=== PATIENT | male | born 1995 | race Two or more races ===

== ENCOUNTER 2017-12-29 20:04 | Inpatient (IN) | payer OTHER ==
--- NOTE | 2017-12-29 20:51 | ED ---
Psychiatric Complaint - HPI Summary HPI Summary: This patient is a 22 year old male presenting to [facility] by police with a chief complaint of SI. Patient states that school has been difficult and that he has been depressed. Symptoms aggravated by nothing. Symptoms alleviated by nothing. Patient additionally reports SI. Patient states that he has not been doing well at school and couldnt figure out his homework. He started having dark thoughts in the library. Earlier in the day, he had two pints, was pretty depressed. He had a conversation with one female friend and expressed thoughts of SI. That friend became worried and called the police. By then, the patient was talking to another friend, talked about his day, and was feeling better when the police picked him up. - History Of Current Complaint Chief Complaint: EDMentalHealth Time Seen by Provider: 12/29/17 20:27 Hx Obtained From: Patient Onset/Duration: Lasting Hours, Still Present Timing: Constant Severity Currently: Mild Character: Depressed Aggravating Factor(s): Nothing Alleviating Factor(s): Nothing Has Suicidal: Reports: Thoughts - Allergies/Home Medications Allergies/Adverse Reactions: Allergies Allergy/AdvReac Type Severity Reaction Status Date / Time Penicillins Allergy Swelling Verified 12/31/17 01:08 Of Face,Lips,& Throat Home Medications: Home Medications NK [No Home Medications Reported] 12/29/17 [History Confirmed 12/29/17] PMH/Surg Hx/FS Hx/Imm Hx Previously Healthy: Yes Opthamlomology History: Denies: Hx Legally Blind EENT History: Denies: Hx Deafness Psychiatric History: Reports: Hx Depression Infectious Disease History: No Infectious Disease History: Denies: Traveled Outside the [place] in Last 30 Days - Family History Known Family History: Positive: Hypertension - Social History Occupation: Student Lives: Dormitory/Roommates Alcohol Use: Occasionally Hx Substance Use: No Substance Use Type: Reports: None Hx Tobacco Use: No Smoking Status (MU): Never Smoked Tobacco Review of Systems Negative: Fever Positive: Depressed, Other - SI All Other Systems Reviewed And Are Negative: Yes Physical Exam - Summary Physical Exam Summary: Appearance: Well-appearing, Well-nourished, lying in bed comfortable Skin: Warm, dry, no obvious rash Eyes: sclera anicteric, no conjunctival pallor ENT: mucous membranes moist Neck: deferred Respiratory: No signs of respiratory distress Cardiovascular: Appears well perfused, pulses are nml Abdomen: deferred Musculoskeletal: Moving all 4 extremities without obvious discomfort Neurological: Awake and alert, mentation is normal, speech is fluent and appropriate Triage Information Reviewed: Yes Vital Signs On Initial Exam: Initial Vitals Temp Pulse Resp BP Pulse Ox 97.8 F 58 18 131/76 100 12/29/17 20:07 12/29/17 20:07 12/29/17 20:07 12/29/17 20:07 12/29/17 20:07 Vital Signs Reviewed: Yes Diagnostics - Vital Signs Vital Signs Temp Pulse Resp BP Pulse Ox 12/29/17 20:07 97.8 F 58 18 131/76 100 - Laboratory Result Diagrams: 12/30/17 03:12 12/30/17 03:12 Lab Statement: Any lab studies that have been ordered have been reviewed, and results considered in the medical decision making process. Course/Dx - Course Course Of Treatment: This is a 22 year old college student with a h/o depression treated with therapy in the past. He was lost to followup and has been having worsening sadness associated with some recent suicidal thoughts but no plan. From a medical standpoint he is healthy, does not take any chronic medications, does not have any significant chronic medical conditions, and does not require any routine laboratory evaluation. A urine toxicology will be taken. Assessment/Plan: This patient is a 22 year old male presenting to [facility] by police with a chief complaint of SI. Patient states that school has been difficult and that he has been depressed. Patient will be admitted to the hospital for MHE. The patient is agreeable with this plan. - Differential Dx/Clinical Impression Provider Diagnosis: Suicidal ideation - Physician Notifications Patient Is Medically Stable For: Psych Evaluation Discharge - Sign-Out/Discharge Documenting (check all that apply): Patient Departure - Discharge Plan Condition: Improved Disposition: ADMITTED TO [facility] - Billing Disposition and Condition Condition: IMPROVED Disposition: Admitted to [facility] - Attestation Statements Document Initiated by Rochelle: Yes Documenting Scribe: Shannan Blum Provider For Whom Rochelle is Documenting (Include Credential): Shai Mobley MD Scribe Attestation: Shannan Joy scribed for Shai Mobley MD on 01/01/18 at 1351. Scribe Documentation Reviewed: Yes Provider Attestation: The documentation as recorded by the Shannan barraza accurately reflects the service I personally performed and the decisions made by me, Shai Mobley MD
[2017-12-30 03:23] LABS: ABS Basophils 0 10^3/ul (0-0.2); ABS Eosinophils 0.1 10^3/ul (0-0.6); ABS Lymphocytes 2.3 10^3/ul (1.0-4.8); ABS Monocytes 0.5 10^3/ul (0-0.8); ABS Neutrophils 4.4 10^3/ul (1.5-7.7); ABS Nucleated RBC 0 10^3/ul; Eosinophil % 0.7 % (0-6); Hematocrit 46 % (42-52); Hemoglobin 15.6 g/dl (14.0-18.0); Lymphocyte % 31.3 % (25-47); Mean Corpuscular HGB Conc 34 g/dl (31-36); Mean Corpuscular Hemoglobin 32 pg (27-31); Mean Corpuscular Volume 94 fL (80-94); Nucleated Red Blood Cells % 0.1; Platelet Count 177 10^3/ul (150-450); Red Cell Distribution Width 13 % (10.5-15); White Blood Count 7.2 10^3/ul (3.5-10.8)
[2017-12-30 03:39] LABS: EGFR Non-African American 93.2 (>60)
[2017-12-30] MEDS ORDERED: Acetaminophen TAB* 325 MG PO PRN (05:11)
[2017-12-30] MEDS ORDERED: Al Hydrox/Mg Hydrox/Simet LIQ* 30 ML UDC PO PRN (05:11)
[2017-12-30] MEDS: Vitamin THERAPEUTIC TAB PO SCH (14:53)
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
[2017-12-31] MEDS: Vitamin THERAPEUTIC TAB PO SCH (10:36)
[2018-01-01] MEDS: Vitamin THERAPEUTIC TAB PO SCH (08:42)
[2018-01-01 11:14] VITALS: BP 126/72
--- NOTE | 2018-01-01 13:43 | PN ---
MHU: Group Therapy Note - Service Type Service Type: [id number] Group Psychotherapy - Cognitive Behavioral Group Therapy ( CBT):Patient was attentive and participatory in CBT programming this morning, and remained in good behavioral control. Patient expressed positive insights regarding relevant treatment interventions and goals.
--- NOTE | 2018-01-03 05:37 | DS ---
CC: [facility] * DISCHARGE SUMMARY: DATE OF ADMISSION: 12/30/17 DATE OF DISCHARGE: 01/01/18 SUPERVISING PSYCHIATRIST: Dr. Wiley Tena.* (DICTATED BY JASVIR MCHUGH NP) DISCHARGE DIAGNOSIS: Adjustment disorder with disturbance of mood. CONDITION AT THE TIME OF DISCHARGE: Improved. The patient denied suicidal ideation. He denies urges for self-harm. He reports desire to be discharged as soon as possible and is future and goal oriented. He states that he likely has too many activities and responsibilities and is identifying ways to appropriately decrease these. He is very busy, calista in college, studying pre- med and with hopes to gain admittance to an xaitment. He denies carlitos symptoms of depression. He denies need for medication therapy at this time. He reports desire to work with outpatient therapist to identify improved emotional regulation. He adds that he has been in contact with his mother, who agrees with him that the hospitalization was likely not necessary. However, the patient is quick to identify understanding of need for stabilization when he presented to the emergency department. He has been safe on all checks and denies suicidality. He is agreeing to follow up with [facility] directly after discharge and has identified friends who can assist him with transportation. MENTAL STATUS EXAM: Rd is a 22-year-old male, slightly obese with full facial hair, who appears stated age. He is adequately groomed and dressed in his own clothing. He is alert and oriented x3, makes good eye contact. He is pleasant and cooperative, and answers questions fully. There is no abnormal psychomotor activity. His speech is soft and articulate. Affect is bright. Mood is euthymic. Thoughts are linear and goal directed. There is no evidence of perceptual disturbances. He denies auditory or visual hallucinations. He continues to deny suicidal ideation, urges to self-harm. His insight and judgment are good in that he is willing to accept referral for outpatient therapy. Attention, memory, and concentration are all good. Fund of knowledge is excellent. INSTRUCTIONS GIVEN TO PATIENT: A. Medications: None. B. Diet: Regular. C. Activity: Ambulation as tolerated. Tobacco cessation is not applicable. There are no pending labs or diagnostic studies at the time of discharge. E. Substance use followup is not applicable. HOSPITAL COURSE: Part-A. Reason for admission: The patient presented to the emergency department via [place] [employer] after texting friends that he had suicidal ideation. Please see H and P from Dr. Hollis Manrique from 12/30/17. Part-B. Psychiatric treatment rendered: The patient was admitted to adult behavioral services unit on involuntary status. He was placed on 15-minute checks and this was decreased to 30-minute observation. He has cooperated fully with discharge planning including allowing Social Work to set up aftercare. He has been pleasant and cooperative with staff and peers. He is future and goal oriented. There is not a clear indication for antidepressant therapy at this time and the patient politely declines. He hopes to participate in therapy. The patient exhibits insight as to his reaction resulting in mental health admission. He reports improvement in stressors since admission. The patient denies previous suicide attempts or self-harm. He is able to exhibit problem solving in regards to improving stressors. JASVIR MCHUGH NP [id number]/[facility] #: [id number] [facility]
== END 2018-01-01 14:20 | disposition home or self-care (01) | DRG 882 ==
LOC: ED 20:04 → BSU 12-30 02:35
PROVIDERS: ADMIT Psychiatry & Neurology Psychiatry; ATTEND Psychiatry & Neurology Psychiatry
DX: F43.23 Adjustment disorder with mixed anxiety and depressed mood (principal); J30.2 Other seasonal allergic rhinitis
CPT/HCPCS: 36415; 80053; 80061; 80307; 80320; 80329; 83036; 84443; 85025; 90853; 99222; 99238; 99282; A9270-GY; G0480